=== PATIENT | male | born 1985 | race Caucasian/White ===

== ENCOUNTER 2021-04-18 02:13 | Emergency (ER) | payer MEDICAID ==
[~2021-04-18] VITALS: Ht 180.3 cm; Wt 86.4 kg
[2021-04-18 02:47] VITALS: BP 101/65
== END 2021-04-18 02:58 | disposition home or self-care (01) ==
LOC: EMS 02:15
DX: R20.2 Paresthesia of skin (principal); M79.604 Pain in right leg; R11.10 Vomiting, unspecified
CPT/HCPCS: 99281; Z7502